=== PATIENT | male | born 1965 | race Caucasian/White ===

== ENCOUNTER 2018-04-20 08:31 | Day surgery (SDC) | payer OTHER ==
[2018-04-16 11:11] VITALS: BMI 24.1
[~2018-04-20 08:31] MED LIST: LACTATED RINGERS 1,000 ML IV SCH
[2018-04-20 09:06] VITALS: RESP 16; TEMP 97.4
[2018-04-20] MEDS ORDERED: LIDOCAINE 1% 20 ML VIAL (10MG/ML) FOR IV START INTRADERMA ONE (09:15)
[2018-04-20] MEDS ORDERED: PROPOFOL 10 MG/ML 20 ML VIAL IV ONE (10:03)
[2018-04-20] MEDS ORDERED: fentaNYL (PF) 50 MCG/ML 2 ML AMP ONE (10:03)
[2018-04-20] MEDS ORDERED: MIDAZOLAM 2 MG/2 ML VIAL ONE (10:03)
--- NOTE | 2018-04-20 10:32 | P.PCN ---
Date of Procedure: 04/20/18 Procedure(s) Performed: Procedure: Total colonoscopy. Preoperative diagnosis: Screening for neoplasia. Postoperative diagnosis: Exam within normal limits. Preparation: HalfLytely prep. Sedation: Was provided by anesthesia. Brief clinical history: The patient is a 52-year-old male who is scheduled for this evaluation for screening for neoplasia age being his risk factor. There is no family history of colon cancer. The patient has no abdominal complaints, bleeding or anemia. This would be his first colonoscopy. Procedure: With the patient on his left lateral decubitus position and after informed consent and adequate sedation, the perianal area was inspected and it did not show any fissures or fistulas. There were no masses felt on digital rectal examination. The Olympus CFQ 160L video colonoscope was then inserted in the rectum in the usual fashion and advanced to the cecum. The preparation was good. The mucosa appeared healthy. No polyps or tumors were seen or any obvious diverticular disease or other pathology. I retroflexed the endoscope in the rectum before the endoscope was withdrawn. The patient tolerated the procedure well. Plan: The patient was reassured. He will follow up with you as planned and I recommended repeat exam in 10 years.
[2018-04-20 11:01] VITALS: BP 98/59; PULSE 54
== END 2018-04-20 11:14 | disposition home or self-care (01) ==
LOC: ORWHC2ENDO 08:31
DX: Z12.11 Encounter for screening for malignant neoplasm of colon (principal); K21.9 Gastro-esophageal reflux disease without esophagitis; N20.0 Calculus of kidney; G25.0 Essential tremor; Z79.899 Other long term (current) drug therapy
CPT/HCPCS: G0121; J2704; J2250; J3010

== ENCOUNTER → 2021-01-17 | Outpatient (CLI) | payer BC ==
[2021-01-17 15:03] LABS: Basophils # (A) 0.02 X 10*3/uL (0.00-0.10); Basophils % (A) 0.4 %; Eosinophils # (A) 0.08 X 10*3/uL (0.04-0.35); Eosinophils % (A) 1.5 %; HCT 44.2 % (39.6-50.0); HGB 13.9 g/dL (13.0-17.0); Lymphocytes # (A) 2.18 X 10*3/uL (0.90-5.00); Lymphocytes % (A) 40.4 %; MCH 30.9 pg (27.0-32.0); MCHC 31.4 g/dL (32.0-37.0); MCV 98.2 fL (80.0-97.0); Mean Platelet Volume 10.2 fL (9.5-12.2); Monocytes % (A) 7.4 %; Neutrophils % (A) 50.1 %; Platelet Count 331 X 10*3/uL (140-440); RDW 13.2 % (11.5-14.5); WBC 5.39 X 10*3/uL (4.50-10.00)
[2021-01-18 00:07] LABS: African American GFR (CKD) 99.1 (60.0-200.0); Albumin 4.1 g/dL (3.80-4.90); Albumin/Globulin Ratio 1.58 (1.60-3.17); Anion Gap 9.7 mmol/L (4.00-12.00); Calcium 9.3 mg/dL (8.7-10.3); Carbon Dioxide 26.3 mmol/L (21.6-31.8); Chol/HDL Ratio 4.29; Globulin 2.6 g/dL (1.6-3.3); Non-African American GFR(CKD) 85.5 (60.0-200.0); Potassium 4.6 mmol/L (3.5-5.5); Total Bilirubin 0.6 mg/dL (0.2-1.2); Total Protein 6.7 g/dL (6.2-8.2)
== END | disposition home or self-care (01) ==
LOC: LABWHC1 08:50
PROVIDERS: ATTEND Family Medicine
DX: Z00.01 Encounter for general adult medical examination with abnormal findings (principal)
CPT/HCPCS: 36415; 80053; 80061; 85025